=== PATIENT | female | born 1960 | race Caucasian/White ===

== ENCOUNTER 2017-06-16 12:59 | Emergency (ER) | payer OTHER ==
[2017-06-16 13:43] VITALS: BP 158/91
--- NOTE | 2017-06-16 14:20 | EDM.PDOC ---
ED HPI GENERAL MEDICAL PROBLEM - General Chief Complaint: Lower Extremity Injury/Pain Stated Complaint: PAIN IN EARS AND SWOLLEN INJURY TO LT LEG Time Seen by Provider: 06/16/17 14:14 Source of Information: Reports: Patient History Limitations: Reports: No Limitations - History of Present Illness INITIAL COMMENTS - FREE TEXT/NARRATIVE: With redness to left lower calf since Friday. Unsure if she got a oliver bolaños thorn in it. Also with ear pain bilaterally. Not taking any meds for it. Did run a temp last night. Onset: Gradual Onset Date: 06/14/17 Duration: Getting Worse Location: Reports: Lower Extremity, Left Quality: Reports: Ache Severity: Moderate Improves with: Reports: Cold Therapy Worsens with: Reports: None Associated Symptoms: Reports: Fever/Chills, Headaches Left Leg Pain Score (Numeric/FACES): 4 - Related Data Allergies Allergy/AdvReac Type Severity Reaction Status Date / Time No Known Allergies Allergy Verified 06/16/17 13:52 Home Meds: Home Meds NK [No Known Home Meds] 04/16/14 [History] Past Medical History [employer] History: Reports: - Past Surgical History Female Surgical History: Reports: Oophorectomy Social & Family History - Tobacco Use Smoking Status *Q: Never Smoker - Alcohol Use Days Per Week of Alcohol Use: 2 Number of Drinks Per Day: 2 Total Drinks Per Week: 4 - Recreational Drug Use Recreational Drug Use: No Review of Systems - Review of Systems Review Of Systems: See Below Constitutional: Reports: No Symptoms Eyes: Reports: No Symptoms Ears: Reports: Pain Nose: Reports: No Symptoms Mouth/Throat: Reports: No Symptoms Respiratory: Reports: No Symptoms Cardiovascular: Reports: No Symptoms GI/Abdominal: Reports: No Symptoms Skin: Reports: Lesions (redness to left lower leg) Neurological: Reports: No Symptoms Psychiatric: Reports: No Symptoms ED EXAM, GENERAL - Physical Exam Exam: See Below Exam Limited By: No Limitations General Appearance: Alert, WD/WN, No Apparent Distress Ear Exam: Bilateral Ear: Erythema, Swelling, Tenderness Nose: Normal Inspection, Normal Mucosa, No Blood Throat/Mouth: Normal Inspection, Normal Lips, Normal Teeth, Normal Gums, Normal Oropharynx, Normal Voice, No Airway Compromise Head: Atraumatic, Normocephalic Neck: Normal Inspection, Supple, Non-Tender, Full Range of Motion Respiratory/Chest: No Respiratory Distress, Lungs Clear, Normal Breath Sounds, No Accessory Muscle Use, Chest Non-Tender Cardiovascular: Normal Peripheral Pulses, Regular Rate, Rhythm, No Edema, No Gallop, No JVD, No Murmur, No Rub Extremities: Leg Pain, Increased Warmth, Redness Neurological: Alert, Oriented, CN II-XII Intact, Normal Cognition, Normal Gait, Normal Reflexes, No Motor/Sensory Deficits Psychiatric: Normal Affect, Normal Mood Skin Exam: Erythema, Increased Warmth (to left calf) Course - Vital Signs Last Recorded V/S: Last Vital Signs Temp 99.0 F 06/16/17 13:48 Pulse 93 06/16/17 13:48 Resp 16 06/16/17 13:48 BP 158/91 H 06/16/17 13:48 Pulse Ox 96 06/16/17 13:48 Departure - Departure Time of Disposition: 14:20 Disposition: Home, Self-Care 01 Condition: Good Clinical Impression: Cellulitis of left leg Otitis media Qualifiers: Otitis media type: serous Chronicity: acute Laterality: bilateral Recurrence: not specified as recurrent Qualified Code(s): H65.03 - Acute serous otitis media , bilateral - Discharge Information Referrals: PCP,None [Primary Care Provider] - Additional Instructions: Rx for Doxycycline 100mg BID x 10 days. Apply warm, moist heat to leg. May take a decongestant as well while flying. Followup if persists or worsens.
== END 2017-06-16 14:30 | disposition home or self-care (01) ==
LOC: JP.ED 12:59
DX: L03.116 Cellulitis of left lower limb (principal); H65.03 Acute serous otitis media, bilateral; Z90.721 Acquired absence of ovaries, unilateral
CPT/HCPCS: 99283